=== PATIENT | female | born 1970 | race Two or more races ===

== ENCOUNTER 2025-05-12 16:50 | Inpatient (IN) | payer OTHER ==
[~2025-05-12] VITALS: Ht 152.4 cm; Wt 59.0 kg
[~2025-05-12 16:50] MED LIST: COZAAR25 MG PO
[2025-05-12] MEDS ORDERED: COZAAR100 MG PO (16:56)
[2025-05-12] MEDS ORDERED: ROSUVASTATIN CA20 MG PO (16:56)
[2025-05-12 19:55] LABS: BASO % 0.5 % (0.1-1.2); EOS # 0.09 (0.04-0.54); EOS % 0.9 % (0.7-7.0); LYMPH # 2.23 (1.18-3.74); LYMPH % 22.7 % (19.3-53.1); MEAN PLATELET VOLUME 11.70 fl (9.4-12.4); MONO # 0.64 (0.24-0.82); MONO % 6.5 % (4.7-12.5); NEUT # 6.78 (1.56-6.13); NEUT % 69.1 % (34.0-71.1); RED CELL DISTRIBUTION WIDTH 12.1 % (11.6-14.4)
[2025-05-12 20:22] LABS: ALT/SGPT 35.0 U/L (12-78); AST/SGOT 22.0 U/L (15-37); BILIRUBIN TOTAL 0.69 mg/dL (0.3-1.2); BUN CREA RATIO 13.0 (7.0-25.0); CREATININE SERUM 0.82 mg/dL (0.55-1.02); GFR 72.65; GLOBULINA 2.9 G/DL (2.4-3.5); GLUCOSE FASTING 152.0 mg/dL (65-100); OSMOLALITY SERUM 285.0 MOSM/KG (275-295)
[2025-05-12] MEDS ORDERED: TICAGRELOR 90 MG TABLET PO STA (21:39)
[2025-05-12] MEDS ORDERED: ATORVASTATIN CALCIUM 40 MG TABLET PO STA (21:40)
[2025-05-12] MEDS ORDERED: ENOXAPARIN SODIUM 60 MG/0.6 ML SYRINGE SUBCUTANEO SCH (21:42)
[2025-05-12] MEDS ORDERED: ENOXAPARIN SODIUM 60 MG/0.6 ML SYRINGE SUBCUTANEO ONE (21:55)
[2025-05-12] MEDS ORDERED: NITROGLYCERIN IN 5 % DEXTROSE 50 MG/250 ML BOTTLE IV ONE ×2 (21:56→22:21)
[2025-05-12] MEDS ORDERED: NITROGLYCERIN IN 5 % DEXTROSE 50 MG/250 ML BOTTLE IV SCH (22:00)
[2025-05-12 22:23] LABS: INR 1.02
[2025-05-13] VITALS (9 sets, daily range): BP systolic 91–124; BP diastolic 47–73; O2SAT 98–100
[2025-05-13] MEDS ORDERED: ACETAMINOPHEN 500 MG GEL..CAP PO ONE ×2 (11:33→17:35)
[2025-05-13] MEDS ORDERED: METOPROLOL SUCCINATE 25 MG TAB.SR.24H PO SCH (13:00)
[2025-05-13] MEDS ORDERED: IRBESARTAN 150 MG TABLET PO SCH (13:00)
[2025-05-13] MEDS ORDERED: ATORVASTATIN CALCIUM 40 MG TABLET PO SCH ×2 (13:00→17:00)
[2025-05-13] MEDS ORDERED: FAMOTIDINE/PF 20 MG/2 ML VIAL ONE (13:09)
[2025-05-13] MEDS ORDERED: ACETAMINOPHEN 500 MG GEL..CAP PO PRN (13:15)
[2025-05-13] MEDS ORDERED: NITROGLYCERIN IN 5 % DEXTROSE 250 ML IV SCH (13:15)
[2025-05-13 15:34] LABS: URINE APPEARANCE Clear; URINE BILIRRUBIN Negative (NEGATIVE); URINE BLOOD Negative; URINE COLOR Yellow; URINE GLUCOSE Negative (NEGATIVE); URINE KETONE Trace (NEGATIVE); URINE LEUKOCYTE Trace; URINE NITRATE Negative; URINE PROTEIN Trace (NEGATIVE); URINE UROBILINOGEN 0.2 E.U./dl
[2025-05-13 15:35] LABS: URINE BACTERIA 3135.5 uL (0.0-1933); URINE EPITHELIAL CELLS 40.7 uL (0.0-38.8); URINE RBC 9.3 uL (0.0-20.8); URINE WBC 16.3 uL (0.0-23.2)
[2025-05-13 15:55] LABS: URINE CAST 0.58 uL (0.0-1.40)
[2025-05-13 15:58] LABS: TYPE CELLS SQUAMOUS; URINE MUCUS SCANT
[2025-05-13] MEDS ORDERED: TICAGRELOR 90 MG TABLET PO SCH (17:00)
[2025-05-13] MEDS ORDERED: ISOSORBIDE DINITRATE 10 MG TABLET PO SCH (17:00)
[2025-05-13] MEDS ORDERED: ENOXAPARIN SODIUM 60 MG/0.6 ML SYRINGE SUBCUTANEO SCH (17:00)
[2025-05-13] MEDS ORDERED: TICAGRELOR 90 MG TABLET PO ONE (17:28)
[2025-05-13] MEDS ORDERED: ENOXAPARIN SODIUM 60 MG/0.6 ML SYRINGE SUBCUTANEO ONE (17:29)
[2025-05-13] MEDS ORDERED: FAMOTIDINE/PF 20 MG/2 ML VIAL IV SCH (21:00)
[2025-05-14 04:04] VITALS: BP 105/63; O2SAT 100
[2025-05-14 07:01] VITALS: BP 119/66; O2SAT 100
[2025-05-14 12:18] LABS: CHOL HDL RATIO 2.1 (0-5.0); HDL 52.0 mg/dl (40-60); LDL 28.0 mg/dl (0-130); VLDL 30.0 (0-39)
[2025-05-14 12:33] LABS: T4 FREE 0.86 NG/ML (0.76-1.46); TSH 1.18 uIU/mL (0.358-3.74)
[2025-05-14 15:04] VITALS: BP 139/75; O2SAT 100
[2025-05-14 18:16] VITALS: BP 112/91; O2SAT 100
[2025-05-14 20:01] VITALS: BP 103/55; O2SAT 99
[2025-05-14 23:31] VITALS: BP 117/95; O2SAT 100
[2025-05-15 05:07] VITALS: BP 110/54; O2SAT 96
[2025-05-15 08:00] VITALS: BP 133/57; O2SAT 98
[2025-05-15] MEDS ORDERED: ENOXAPARIN SODIUM 60 MG/0.6 ML SYRINGE SUBCUTANEO SCH (09:00)
[2025-05-15 12:00] VITALS: BP 122/61; O2SAT 99
[2025-05-15] MEDS ORDERED: LIPITOR40 M1 PO (13:28)
[2025-05-15] MEDS ORDERED: PEPCID AC20 MG PO (13:28)
[2025-05-15] MEDS ORDERED: AVAPRO150 MG PO (13:28)
[2025-05-15] MEDS ORDERED: ISORDIL10 MG PO (13:28)
[2025-05-15] MEDS ORDERED: BRILINTA90 MG PO (13:28)
[2025-05-15] MEDS ORDERED: TOPROL XL25 M1 PO (13:28)
== END 2025-05-15 14:00 | disposition home or self-care (01) | DRG 282 ==
LOC: ER 16:50 → SEC-K 05-13 16:14 → ICU 05-13 16:14 → ICU-2 05-13 18:32 → ICU 05-13 21:46
PROVIDERS: Preventive Medicine Public Health & General Preventive Medicine; ADMIT Internal Medicine; ATTEND Internal Medicine
PROC: B246ZZZ Ultrasonography of Right and Left Heart (ICD-10-PCS; principal; 2025-05-13)
PROC: 4A12X4Z Monitoring of Cardiac Electrical Activity, External Approach (ICD-10-PCS; 2025-05-13)
PROC: 4A023N7 Measurement of Cardiac Sampling and Pressure, Left Heart, Percutaneous Approach (ICD-10-PCS; 2025-05-14)
PROC: B211YZZ Fluoroscopy of Multiple Coronary Arteries using Other Contrast (ICD-10-PCS; 2025-05-14)
DX: I24.9 Acute ischemic heart disease, unspecified (principal); I21.4 Non-ST elevation (NSTEMI) myocardial infarction; N80.9 Endometriosis, unspecified; D25.9 Leiomyoma of uterus, unspecified; I10 Essential (primary) hypertension; E78.5 Hyperlipidemia, unspecified; Z88.6 Allergy status to analgesic agent; Z78.0 Asymptomatic menopausal state